=== PATIENT | male | born 1975 | race Caucasian/White ===

== ENCOUNTER 2016-11-09 15:26 | Emergency (ER) | payer OTHER ==
[~2016-11-09] VITALS: Ht 175.3 cm; Wt 91.0 kg
[2016-11-09 15:28] VITALS: BP 132/87
== END 2016-11-09 17:38 | disposition home or self-care (01) ==
LOC: ED 17:25
DX: G51.0 Bell's palsy (principal); Z88.8 Allergy status to other drugs, medicaments and biological substances
CPT/HCPCS: 99283

== ENCOUNTER → 2017-02-02 | Outpatient (CLI) | payer OTHER ==
[~2017-02-02] MED LIST: CLON0.5T PO; MIRT30TA PO; SERT100T PO
[2017-02-02 16:03] LABS: BLOOD UREA NITROGEN 12 mg/dL (7-18)
[2017-02-02 16:06] LABS: ASPARTATE AMINO TRANSFERASE 16 U/L (15-37)
== END | disposition home or self-care (01) ==
LOC: STAR 14:54
PROVIDERS: ATTEND Student in an Organized Health Care Education/Training Program
DX: Z01.818 Encounter for other preprocedural examination (principal); N20.0 Calculus of kidney
CPT/HCPCS: 36415; 80053; 81001; 87086

== ENCOUNTER 2017-02-15 09:28 | Day surgery (SDC) | payer OTHER ==
[~2017-02-15] VITALS: Ht 175.3 cm; Wt 89.3 kg
[2017-02-15] MEDS ORDERED: LACTATED RINGERS 1,000 ML IV SCH (10:03)
[2017-02-15 10:11] VITALS: BP 123/86
[2017-02-15] MEDS ORDERED: LIDOCAINE-MPF 2% ,5ML ONE (11:43)
[2017-02-15] MEDS ORDERED: PROPOFOL 10 MG/ML, 20ML ONE (11:43)
[2017-02-15] MEDS ORDERED: LIDOCAINE GEL 2%, 5ML ONE (11:46)
[2017-02-15] MEDS ORDERED: FENTANYL PF 100 MCG/2ML ONE ×2 (12:01→12:46)
[2017-02-15] MEDS ORDERED: MIDAZOLAM 1 MG/ML, 2ML ONE (12:01)
[2017-02-15] MEDS ORDERED: ONDANSETRON 2MG/ML, 2ML ONE (12:12)
[2017-02-15] MEDS ORDERED: CEFAZOLIN 1,000 MG ONE (12:12)
[2017-02-15] MEDS ORDERED: METOPROLOL 1 MG/ML, 5ML IV PRN (13:00)
[2017-02-15] MEDS ORDERED: ACETAMINOPHEN 325 MG TABLET PO PRN (13:00)
[2017-02-15] MEDS ORDERED: MEPERIDINE/PF 25MG/0.5ML IVPush PRN (13:00)
[2017-02-15] MEDS ORDERED: FENTANYL PF 100 MCG/2ML IV PRN (13:00)
[2017-02-15] MEDS ORDERED: hydrALAzine 20 MG/ML, 1ML IV PRN (13:00)
[2017-02-15] MEDS ORDERED: HYDROmorphone 1 MG/ML, 1ML IV PRN (13:00)
[2017-02-15] MEDS ORDERED: OXYcodone 5 MG/5 ML ORAL.SOL UDC PO PRN (13:00)
[2017-02-15] MEDS ORDERED: ALBUTEROL SULFATE 2.5 MG/3 ML NPPB PRN (13:00)
[2017-02-15] MEDS ORDERED: LORazepam 2 MG/ML, 1ML IVPush PRN (13:00)
[2017-02-15] MEDS ORDERED: KETOROLAC 30 MG/1 ML ONE (13:36)
[2017-02-15] MEDS ORDERED: PHENAZOPYRIDINE 200 MG TABLET ONE (13:41)
[2017-02-15] MEDS ORDERED: PHENAZOPYRIDINE 200 MG TABLET PO ONE (14:00)
[2017-02-15] MEDS ORDERED: KETOROLAC 30 MG/1 ML IV ONE (14:30)
== END 2017-02-15 15:32 ==
LOC: OUT 09:28
PROVIDERS: ATTEND Student in an Organized Health Care Education/Training Program
DX: N20.2 Calculus of kidney with calculus of ureter (principal); K21.9 Gastro-esophageal reflux disease without esophagitis; Z88.8 Allergy status to other drugs, medicaments and biological substances
CPT/HCPCS: 52356; 74000; 76001; C1758; C1769; C2617; J0690; J2250; J2405; J2704; J3010; J3490; J7120